=== PATIENT | male | born 1965 | race Asian ===

== ENCOUNTER 2017-07-30 18:53 | Emergency (ER) | payer OTHER ==
[~2017-07-30] VITALS: Ht 170.2 cm; Wt 67.1 kg
--- NOTE | 2017-07-30 19:27 | ED CARDIAC/CP/PALPITATIONS ---
History of Present Illness General Chief Complaint: Chest Pain Stated Complaint: CP/JAW PAIN Source: patient, family, old records Exam Limitations: no limitations Vital Signs & Intake/Output Vital Signs & Intake/Output Vital Signs Date Time Temp Pulse Resp B/P B/P Pulse O2 O2 Flow FiO2 Mean Ox Delivery Rate 07/30 2048 66 20 146/82 07/30 1909 99 Room Air Room Air 07/30 1858 97.3 57 18 162/77 99 Room Air Allergies Coded Allergies: minoxidil (Mild, rash 07/30/17) Reconcile Medications Aspirin (Ecotrin*) 81 MG TABLET.DR 1 TAB PO DAILY HEART/BLOOD (Reported) Rosuvastatin Calcium (Crestor) 5 MG TABLET 1 TAB PO DAILY CHOLESTEROL ( Reported) Core Measure Meds Pre-Hospital aspirin Triage Note: PT BROUGHT DIRECT TO [facility] FOR TRIAGE. C/C MID/UPPER ABD AND L JAW, ONSET YESTERDAY, MOSTLY CONSTANT SINCE ONSET. RATES 1-2/10 AND DESCRIBES A DISCOMFORT AND PRESSURE. -N/V, +DIAPHORESIS EARLIER TODAY BUT STATES THE ENVIRONMENT WAS WARM. -SOB. ALSO REPORTS SOME FATIGUE. EKG BEING DONE AT PRESENT BY WILLIAM MERRITT. Triage Nurses Notes Reviewed? yes Onset: Evening Duration: hour(s):, better, constant, continues in ED Timing: recent history Quality/Severity: mild, moderate, aching Location: central Radiation: jaw Activities at Onset: rest Prior Chest Pain/Card Workup: echocardiography, stress test Modifying Factors: Improves With: antacids. Nitro Today/Relief: no nitro taken today Aspirin Today: 81 mg x 1, provided at home Associated Symptoms: heartburn HPI: One day prior to admission patient complains of substernal chest discomfort described as mild to moderate achy burning constant radiating to neck and jaw associated with anorexia improved with Tums and Gaviscon. He denies fever chills vomiting diarrhea shortness of breath cough headache dysuria rash bleeding. Past History Travel History Traveled to [place] past 21 day No Medical History Any Pertinent Medical History? 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 Yes Review of Systems Review of Systems Constitutional: Reports: no symptoms. EENTM: Reports: no symptoms. Respiratory: Reports: no symptoms. Cardiovascular: Reports: see HPI, chest pain. GI: Reports: see HPI, nausea. Genitourinary: Reports: no symptoms. Musculoskeletal: Reports: no symptoms. Skin: Reports: no symptoms. Neurological/Psychological: Reports: no symptoms. Hematologic/Endocrine: Reports: no symptoms. Immunologic/Allergic: Reports: no symptoms. All Other Systems: Reviewed and Negative Physical Exam Physical Exam General Appearance: well developed/nourished, alert, awake, comfortable Head: atraumatic, normal appearance Eyes: Bilateral: normal appearance, PERRL, EOMI. Ears, Nose, Throat: normal pharynx, normal ENT inspection, hearing grossly normal Neck: normal inspection, supple, full range of motion, no midline tenderness Respiratory: normal breath sounds, chest non-tender, no respiratory distress, quiet respiration, lungs clear Cardiovascular: regular rate/rhythm, normal peripheral pulses, norml femoral pulses equa Peripheral Pulses: 4+ carotid (R), 4+ carotid (L) Gastrointestinal: normal bowel sounds, soft, non-tender, no organomegaly Back: normal inspection, normal range of motion Extremities: normal inspection, normal capillary refill, normal range of motion, no edema, no ligament instability Neurologic/Psych: no motor/sensory deficits, awake, alert, oriented x 3, normal gait, normal mood/affect, spot facer II-XII nml as tested Reflexes: 2+: bicep (R), bicep (L). Skin: intact, normal color, warm/dry Lymphatic: no anterior cervical dony Core Measures ACS in differential dx? Yes No ASA d/t Medical Contraindication CVA/TIA Diagnosis No Sepsis Present: No Sepsis Focused Exam Completed? No Progress Differential Diagnosis: AMI, atrial fibrillation, hyperkalemia, hyperthyroid, PUD/GERD Plan of Care: Orders Procedure Date/time Status Add-on Test (ER Only) 07/30 1919 Active Add-on Test (ER Only) 07/30 1917 Active TSH REFLEX 07/30 1913 Complete Telemetry/Carpet Inspector Finished 07/30 1855 Active TROPONIN LEVEL 02/21 1856 Complete MAGNESIUM 07/30 1855 Complete LIPASE 07/30 1855 Complete C-REACTIVE PROTEIN 07/30 1855 Complete COMPREHENSIVE METABOLIC PANEL 07/30 1855 Complete CBC WITHOUT DIFFERENTIAL 07/30 1855 Complete EKG 07/30 1855 Active Laboratory Tests 07/30/171913: Anion Gap 11, Estimated GFR > 60, BUN/Creatinine Ratio 13.6, Glucose 100 H, Calcium 9.8, Magnesium 2.0, Total Bilirubin 0.9, AST 35, ALT 34, Alkaline Phosphatase 68, Troponin I < 0.01, C-Reactive Prot, Quant < 0.5, Total Protein 7.1, Albumin 4.3, Globulin 2.8, Albumin/Globulin Ratio 1.5, Lipase 74, TSH &T3 & Free T4 Intrp 1.810, CBC w Diff NO MAN DIFF REQ, RBC 5.09, MCV 84.9, MCH 27.8, MCHC 32.7 L, RDW 13.9, MPV 9.7, Gran % 53.3, Lymphocytes % 34.6, Monocytes % 9.5 H, Eosinophils % 1.5, Basophils % 1.1, Absolute Granulocytes 3.1, Absolute Lymphocytes 2.0, Absolute Monocytes 0.5, Absolute Eosinophils 0.1, Absolute Basophils 0.1 CXR Impression: refused Initial ED EKG: normal axis, normal intervals, normal p-waves, normal QRS complex, rhythm (sinus bradycardia) Prior EKG: unchanged Rhythm Strip: sinus bradycardia Departure Departure Time of Disposition: 2033 Disposition: HOME OR SELF CARE Condition: Stable Clinical Impression Primary Impression: GERD (gastroesophageal reflux disease) Secondary Impressions: Chest pain syndrome Referrals: Jeimy HENRIQUEZ,Cecilio Painter (PCP/Family) Javier HENRIQUEZ,Alan Multani Departure Forms: Customer Survey General Discharge Information Critical Care Note Critical Care Note Critical Care Time: non-applicable
[2017-07-30 19:33] LABS: ABSOLUTE BASOPHIL COUNT 0.1 /CUMM (0.0-0.2); ABSOLUTE EOSINOPHIL COUNT 0.1 /CUMM (0.0-0.7); ABSOLUTE GRANULOCYTE CT 3.1 /CUMM (1.4-6.5); ABSOLUTE MONOCYTE COUNT 0.5 /CUMM (0.10-0.60); BASOPHIL % 1.1 % (0.0-2.0); EOSINOPHIL % 1.5 % (0-5); GRANULOCYTE % 53.3 % (42.2-75.2); HEMATOCRIT 43.2 % (42-52); MEAN CORPUSCULAR HGB 27.8 PG (27.0-31.0); MEAN CORPUSCULAR HGB CONC 32.7 G/DL (33.0-37.0); MEAN CORPUSCULAR VOLUME 84.9 FL (80.0-94.0); MEAN PLATELET VOLUME 9.7 FL (7.4-10.4); PLATELET COUNT 211 /CUMM (130-400); RBC DISTRIBUTION WIDTH 13.9 % (11.5-14.5); RED BLOOD CELL CT 5.09 /CUMM (4.70-6.10); WHITE BLOOD CELL COUNT 5.7 /CUMM (4.8-10.8)
[2017-07-30] MEDS ORDERED: ASPIRIN EC81 M1 PO (19:37)
[2017-07-30] MEDS ORDERED: CRESTOR5 M1 PO (19:38)
[2017-07-30 20:49] VITALS: BP 146/82
== END 2017-07-30 20:50 ==
LOC: ERH 18:53
PROVIDERS: Emergency Medicine
DX: K21.9 Gastro-esophageal reflux disease without esophagitis (principal); R07.89 Other chest pain
CPT/HCPCS: 93005; 93010